=== PATIENT | male | born 1995 | race Caucasian/White ===

== ENCOUNTER 2019-06-26 13:06 | Emergency (ER) | payer BC ==
[2019-06-26] MEDS ORDERED: Amoxicillin 500 MG Cap PO ONE (14:20)
--- NOTE | 2019-06-26 14:25 | EDM.PDOC ---
ED HPI GENERAL MEDICAL PROBLEM - General Chief Complaint: General Stated Complaint: SORE THROAT Time Seen by Provider: 06/26/19 13:40 Source of Information: Reports: Patient, Family (dad) History Limitations: Reports: No Limitations - History of Present Illness INITIAL COMMENTS - FREE TEXT/NARRATIVE: Patient presents with throat pain that started three days ago. Now in the fourth day it is worsening significantly. No fever, cough, runny nose, sinus pressure, abdominal pain or ear pain. He is a college student and his roommate has [place]. He doesn't have any direct contact with him other than rarely sharing a drinking cup. - Related Data Allergies Allergy/AdvReac Type Severity Reaction Status Date / Time egg Allergy Swelling Verified 06/26/19 13:14 Home Meds: Home Meds . [No Known Home Meds] 06/26/19 [History] Social & Family History - Tobacco Use Smoking Status *Q: Never Smoker Second Hand Smoke Exposure: No - Caffeine Use Caffeine Use: Reports: Coffee - Alcohol Use Days Per Week of Alcohol Use: 1 Number of Drinks Per Day: 4 Total Drinks Per Week: 4 - Recreational Drug Use Recreational Drug Use: No ED ROS GENERAL - Review of Systems Review Of Systems: Comprehensive ROS is negative, except as noted in HPI. ED EXAM, GENERAL - Physical Exam Exam: See Below Exam Limited By: No Limitations General Appearance: Alert, WD/WN, No Apparent Distress Eye Exam: Bilateral Eye: EOMI, Normal Inspection, PERRL Ears: Normal External Exam, Normal Canal, Hearing Grossly Normal, Normal TMs Nose: Normal Inspection Throat/Mouth: Normal Lips, Normal Teeth, No Airway Compromise, Other (bright red posterior pharynx and tonsils with a couple white spots) Head: Atraumatic, Normocephalic Neck: Lymphadenopathy (L), Lymphadenopathy (R) Respiratory/Chest: No Respiratory Distress, Lungs Clear, Normal Breath Sounds, No Accessory Muscle Use Cardiovascular: Regular Rate, Rhythm, No Murmur GI/Abdominal: No Distention Extremities: Normal Inspection, Normal Range of Motion Neurological: Alert, Oriented Psychiatric: Normal Affect, Normal Mood Skin Exam: Warm, Dry, Intact, Normal Color, No Rash Course - Vital Signs Last Recorded V/S: Last Vital Signs Temp 98.8 F 06/26/19 13:11 Pulse 82 06/26/19 13:11 Resp 16 06/26/19 13:11 BP 142/77 H 06/26/19 13:11 Pulse Ox 97 06/26/19 13:11 - Orders/Labs/Meds Orders: Active Orders 24 hr Category Date Time Status CULTURE STREP A CONFIRMATION [RM] Stat Lab 06/26/19 13:25 Results STREP SCRN A RAPID W CULT CONF [RM] Stat Lab 06/26/19 13:41 Ordered Meds: Medications Discontinued Medications Generic Name Dose Route Start Last Admin Trade Name Michelle PRN Reason Stop Dose Admin Amoxicillin 2,500 mg 06/26/19 14:20 06/26/19 14:49 Amoxil PO 06/26/19 14:21 2,500 mg ONETIME ONE Administration - Re-Assessments/Exams Free Text/Narrative Re-Assessment/Exam: 06/26/19 15:03 Rapid strep test is negative but may not have been a great sampling per the nurse as patient couldn't keep tongue out of the way with a strong gag reflex. With the symptoms and clinical exam I feel it is appropriate to treat for presumptive strep throat. I discussed findings and treatment plan with patient and his father. I also advised him to follow up for evaluation if not resolving in 3-5 days as he may need to be tested for mono at that point. Patient discharged to home with amoxicillin supply to get through weekend and Rx. Stable at discharge. Departure - Departure Time of Disposition: 14:22 Disposition: Home, Self-Care 01 Condition: Good Clinical Impression: Strep throat - Discharge Information Instructions: Strep Throat, [id number] Forms: ED Department Discharge Additional Instructions: 1. Drink 8 cups of water daily. 2. Take the antibiotic for 10 days as directed. 3. If this isn't resolving in 3-5 days, follow up with your PCP for further evaluation and possible check for Mononucleosis. - My Orders Last 24 Hours: My Active Orders 06/26/19 13:25 CULTURE STREP A CONFIRMATION [RM] Stat 06/26/19 13:41 STREP SCRN A RAPID W CULT CONF [] Stat - Assessment/Plan Last 24 Hours: My Active Orders 06/26/19 13:25 CULTURE STREP A CONFIRMATION [RM] Stat 06/26/19 13:41 STREP SCRN A RAPID W CULT CONF [RM] Stat
== END 2019-06-26 14:45 | disposition home or self-care (01) ==
LOC: KA.ED 13:06
DX: J02.0 Streptococcal pharyngitis (principal); Z91.012 Allergy to eggs
CPT/HCPCS: 87081; 87430; 99283; A9270-GY